=== PATIENT | male | born 1935 | race Native Hawaiian/Other Pacific Islander ===

== ENCOUNTER 2022-03-05 10:12 | Inpatient (IN) | payer MEDICARE, OTHER ==
[~2022-03-05] VITALS: Ht 162.6 cm; Wt 64.3 kg
[~2022-03-05 10:12] MED LIST: MONT4CHW9 PO
[2022-03-05] MEDS ORDERED: PANTOPRAZOLE 40mg/50ML NS AE 50 ML IV ONE ×2 (10:30→16:30)
[2022-03-05] MEDS ORDERED: PANTOPRAZOLE 40 MG/10 ML VIAL INJ IV ONE (10:30)
[2022-03-05 10:51] LABS: Basophils # (auto) 0 10 ^3/uL (0-0.2); Basophils % (auto) 0.6 % (0.0-2.0); Eosinophils # (auto) 0.1 10 ^3/uL (0-0.8); Eosinophils % (auto) 1.4 % (0.0-7.0); Hematocrit 39.3 % (41.0-53.0); Hemoglobin 13.1 g/dL (13.5-17.5); Lymphocytes # (auto) 1.9 10 ^3/uL (0.4-5.4); Lymphocytes % (auto) 24.9 % (10.0-50.0); Mean Corpuscular Hgb Conc. 33.3 g/dL (32.0-36.0); Mean Corpuscular Volume 96.1 fL (80.0-100.0); Monocytes # (auto) 0.5 10 ^3/uL (0-1.3); Monocytes % (auto) 6.6 % (0.0-12.0); Neutrophils # (auto) 5.1 10 ^3/uL (1.6-8.6); Neutrophils % (auto) 66.5 % (37.0-80.0); Red Blood Cells 4.09 10^6/uL (4.5-5.90); Red Cell Distribution Width 13.8 % (11.8-14.3); White Blood Cell 7.6 10^3/uL (4.4-10.8)
[2022-03-05 11:12] LABS: Albumin 3.6 g/dL (3.4-5.0); BUN/Creatinine Ratio 22.4; Calcium 8.4 mg/dL (8.5-10.1); Potassium 3.8 mmol/L (3.5-5.1)
[2022-03-05 11:15] LABS: Bilirubin, Total 0.6 mg/dL (0.2-1.0); Total Protein 6.7 g/dL (6.4-8.2)
[2022-03-05 12:06] LABS: INR 1.03 (0.9-1.15); Partial Thromboplastin Time 31.5 sec (24.6-33.4)
[2022-03-05] MEDS ORDERED: IOHEXOL 300 MG/ML 100ML BOTTLE IJ ONE (12:25)
[2022-03-05] MEDS ORDERED: OCTREOTIDE ACETATE 100 MCG in SODIUM CHL 0.9% 50 ML IV ONE (16:30)
[2022-03-05] MEDS ORDERED: ONDANSETRON HCL 4 MG/2 ML VIAL IV PRN (16:30)
[2022-03-05] MEDS ORDERED: MORPHINE SULFATE INJ 2 MG/ml SYRG IV PRN (16:30)
[2022-03-05] MEDS: SODIUM CHLORIDE 0.9% 1,000 ML IV SCH (17:18)
[2022-03-05] MEDS: OCTREOTIDE ACETATE 500 MCG in SODIUM CHL 0.9% 99 ML IV SCH (17:32)
[2022-03-05 18:50] LABS: Hematocrit 36.5 % (41.0-53.0); Hemoglobin 12.3 g/dL (13.5-17.5)
[2022-03-06] VITALS (8 sets, daily range): BP systolic 121–145; BP diastolic 36–71
[2022-03-06] MEDS: OCTREOTIDE ACETATE 500 MCG in SODIUM CHL 0.9% 99 ML IV SCH ×2 (03:00→11:03)
[2022-03-06] MEDS: SODIUM CHLORIDE 0.9% 1,000 ML IV SCH ×2 (06:48→22:47)
[2022-03-06 08:39] LABS: Potassium 3.9 mmol/L (3.5-5.1)
[2022-03-06 08:47] LABS: Albumin 2.9 g/dL (3.4-5.0); BUN/Creatinine Ratio 25.4; Bilirubin, Total 1.2 mg/dL (0.2-1.0); Calcium 8.2 mg/dL (8.5-10.1); Total Protein 6.5 g/dL (6.4-8.2)
[2022-03-06 09:51] LABS: Basophils # (auto) 0 10 ^3/uL (0-0.2); Basophils % (auto) 0.5 % (0.0-2.0); Eosinophils # (auto) 0.2 10 ^3/uL (0-0.8); Eosinophils % (auto) 2.2 % (0.0-7.0); Hematocrit 36.4 % (41.0-53.0); Hemoglobin 12.4 g/dL (13.5-17.5); Lymphocytes # (auto) 1.9 10 ^3/uL (0.4-5.4); Lymphocytes % (auto) 22.7 % (10.0-50.0); Mean Corpuscular Hemoglobin 32.5 pg (28.0-32.0); Mean Corpuscular Volume 95.6 fL (80.0-100.0); Monocytes # (auto) 0.6 10 ^3/uL (0-1.3); Neutrophils # (auto) 5.6 10 ^3/uL (1.6-8.6); Neutrophils % (auto) 67.6 % (37.0-80.0); Red Blood Cells 3.81 10^6/uL (4.5-5.90); Red Cell Distribution Width 13.7 % (11.8-14.3); White Blood Cell 8.4 10^3/uL (4.4-10.8)
[2022-03-06] MEDS ORDERED: traMADol HCL 50 MG TAB PO PRN (12:45)
[2022-03-06] MEDS ORDERED: MORPHINE SULFATE INJ 2 MG/ml SYRG IV PRN (12:45)
[2022-03-06 15:55] LABS: Urine Bacteria NONE SEEN /hpf (None Seen); Urine Blood Negative /uL (Negative); Urine Mucus FEW (None Seen); Urine Specific Gravity 1.017 (1.001-1.035); Urine WBC <1 /hpf (0 - 3)
[2022-03-06] MEDS ORDERED: GOLYTELY 4L KIT PO ONE (16:00)
[2022-03-06] MEDS: PANTOPRAZOLE 40 MG/10 ML VIAL INJ IV SCH (22:35)
[2022-03-07] MEDS: SODIUM CHLORIDE 0.9% 1,000 ML IV SCH (01:57)
[2022-03-07] MEDS ORDERED: MELATONIN 5 MG TAB PO PRN (04:45)
[2022-03-07 05:00] VITALS: BP 154/82
[2022-03-07 06:45] LABS: Basophils # (auto) 0 10 ^3/uL (0-0.2); Basophils % (auto) 0.4 % (0.0-2.0); Eosinophils # (auto) 0.1 10 ^3/uL (0-0.8); Eosinophils % (auto) 1.5 % (0.0-7.0); Hematocrit 36.5 % (41.0-53.0); Hemoglobin 12.4 g/dL (13.5-17.5); Lymphocytes # (auto) 1.2 10 ^3/uL (0.4-5.4); Lymphocytes % (auto) 11.8 % (10.0-50.0); Mean Corpuscular Hgb Conc. 33.8 g/dL (32.0-36.0); Mean Corpuscular Volume 97.5 fL (80.0-100.0); Monocytes # (auto) 0.8 10 ^3/uL (0-1.3); Monocytes % (auto) 7.9 % (0.0-12.0); Neutrophils # (auto) 7.8 10 ^3/uL (1.6-8.6); Neutrophils % (auto) 78.4 % (37.0-80.0); Red Blood Cells 3.74 10^6/uL (4.5-5.90); Red Cell Distribution Width 13.6 % (11.8-14.3); White Blood Cell 9.9 10^3/uL (4.4-10.8)
[2022-03-07 06:57] LABS: Potassium 3.4 mmol/L (3.5-5.1)
[2022-03-07 07:06] LABS: Albumin 3.3 g/dL (3.4-5.0); BUN/Creatinine Ratio 23.2; Bilirubin, Total 1.3 mg/dL (0.2-1.0); Total Protein 6.2 g/dL (6.4-8.2)
[2022-03-07 09:00] VITALS: BP 143/73
[2022-03-07] MEDS: PANTOPRAZOLE 40 MG/10 ML VIAL INJ IV SCH (10:37)
[2022-03-07] MEDS ORDERED: amLODIPine BESYLATE 5 MG TAB PO ONE (12:15)
[2022-03-07] MEDS ORDERED: POTASSIUM EFFERVESENT TAB 25 MEQ PO ONE (12:15)
[2022-03-07] MEDS ORDERED: LORazepam 2MG/ML-1ML VIAL IV PRN (12:15)
[2022-03-07] MEDS ORDERED: hydrALAZINE HCL 20 MG/ML VL IV PRN (12:15)
[2022-03-07 13:00] VITALS: BP 131/80
[2022-03-07] MEDS ORDERED: PANT40TA2 PO (13:01)
[2022-03-07] MEDS ORDERED: AML5T PO (13:01)
[2022-03-07 14:30] VITALS: BP 130/80
[2022-03-08] MEDS ORDERED: amLODIPine BESYLATE 5 MG TAB PO SCH (10:00)
== END 2022-03-07 15:00 | disposition home or self-care (01) | DRG 378 ==
LOC: ER 10:12 → OVERFLOW 16:37 → WEST WING 23:06
PROVIDERS: ADMIT Nurse Practitioner Family; ATTEND Internal Medicine
DX: K57.31 Diverticulosis of large intestine without perforation or abscess with bleeding (principal); D62 Acute posthemorrhagic anemia; K56.7 Ileus, unspecified; G93.40 Encephalopathy, unspecified; K80.20 Calculus of gallbladder without cholecystitis without obstruction; J45.909 Unspecified asthma, uncomplicated; N40.0 Benign prostatic hyperplasia without lower urinary tract symptoms; F03.90 Unspecified dementia, unspecified severity, without behavioral disturbance, psychotic disturbance, mood disturbance, and anxiety; I25.10 Atherosclerotic heart disease of native coronary artery without angina pectoris; Z79.899 Other long term (current) drug therapy; I10 Essential (primary) hypertension; Z20.822 Contact with and (suspected) exposure to COVID-19
CPT/HCPCS: 36415; 71045; 74177; 80053; 81001; 82607; 83605; 83690; 83735; 83880; 84443; 84484; 85014; 85018; 85025; 85384; 85610; 85730; 86850; 86900; 86901; 87426; 96365; 96366; 96375; 96376; C9113; G0378

== ENCOUNTER 2022-09-13 11:01 | Inpatient (IN) | payer MEDICARE ==
[~2022-09-13] VITALS: Ht 152.4 cm; Wt 62.1 kg
[~2022-09-13 11:01] MED LIST changes: +AML5T PO; +PANT40TA2 PO
[2022-09-13] MEDS ORDERED: SODIUM CHLORIDE 0.9% 1,000 ML IVB ONE (11:15)
[2022-09-13] MEDS ORDERED: cefTRIAXone 1GM/50ML D5W 50 ML IV ONE (11:15)
[2022-09-13 11:40] LABS: Basophils # (auto) 0 10 ^3/uL (0-0.2); Basophils % (auto) 0.3 % (0.0-2.0); Eosinophils # (auto) 0 10 ^3/uL (0-0.8); Eosinophils % (auto) 0.2 % (0.0-7.0); Hematocrit 37.6 % (41.0-53.0); Hemoglobin 12.8 g/dL (13.5-17.5); Lymphocytes # (auto) 0.4 10 ^3/uL (0.4-5.4); Lymphocytes % (auto) 6.7 % (10.0-50.0); Mean Corpuscular Hemoglobin 31.7 pg (28.0-32.0); Mean Corpuscular Volume 93.3 fL (80.0-100.0); Monocytes # (auto) 0.1 10 ^3/uL (0-1.3); Monocytes % (auto) 1.9 % (0.0-12.0); Neutrophils # (auto) 5.6 10 ^3/uL (1.6-8.6); Neutrophils % (auto) 90.9 % (37.0-80.0); Red Blood Cells 4.03 10^6/uL (4.5-5.90); White Blood Cell 6.1 10^3/uL (4.4-10.8)
[2022-09-13 11:54] LABS: INR 1.06 (0.9-1.15); Partial Thromboplastin Time 27.4 sec (24.6-33.4)
[2022-09-13] MEDS ORDERED: ACETAMINOPHEN IV 1000 MG/100ML (10MG/ML) IV ONE (12:00)
[2022-09-13 12:19] LABS: Lactic Acid w/Reflex 2.5 mmol/L (0.4-2.0)
[2022-09-13] MEDS ORDERED: levoFLOXacin 500MG 100 ML IV ONE (12:45)
[2022-09-13] MEDS ORDERED: SODIUM CHLORIDE 0.9% 500 ML IV ONE (12:45)
[2022-09-13 14:13] LABS: Albumin 3.2 g/dL (3.4-5.0); Anion Gap 5 (5-15); Blood Alcohol < 3.0 mg/dL (0-5); Blood Urea Nitrogen 19 mg/dL (7-18); Calcium 7.9 mg/dL (8.5-10.1); Carbon Dioxide 26 mmol/L (21-32); Chloride 106 mmol/L (98-107); Glucose 143 mg/dL (74-106); Magnesium 2.1 mg/dL (1.6-2.6); Potassium 3.4 mmol/L (3.5-5.1); Sodium 137 mmol/L (136-145)
[2022-09-13 14:16] LABS: Alanine Aminotransferase 124 U/L (16-61); Alkaline Phosphatase 253 U/L (45-117); Aspartate Aminotransferase 241 U/L (15-37); BUN/Creatinine Ratio 23.2 (10.0-20.0); Bilirubin, Total 2.4 mg/dL (0.2-1.0); GFR African American 114 mL/min; GFR Non-African American 94 mL/min; Total Protein 6.7 g/dL (6.4-8.2)
[2022-09-13] MEDS ORDERED: NITROGLYCERIN 0.4 MG SL TAB SL PRN (18:15)
[2022-09-13] MEDS ORDERED: MORPHINE SULFATE INJ 2 MG/ml SYRG IV PRN (18:15)
[2022-09-13] MEDS ORDERED: POTASSIUM EFFERVESENT TAB 25 MEQ PO ONE (18:30)
[2022-09-13] MEDS: SODIUM CHLORIDE 0.9% 1,000 ML IV SCH (22:15)
[2022-09-14] MEDS: SODIUM CHLORIDE 0.9% 1,000 ML IV SCH ×3 (04:15→22:31)
[2022-09-14 06:36] LABS: Basophils # (auto) 0.1 10 ^3/uL (0-0.2); Basophils % (auto) 1.8 % (0.0-2.0); Eosinophils # (auto) 0 10 ^3/uL (0-0.8); Eosinophils % (auto) 0.5 % (0.0-7.0); Hematocrit 36.2 % (41.0-53.0); Hemoglobin 12.5 g/dL (13.5-17.5); Lymphocytes # (auto) 0.3 10 ^3/uL (0.4-5.4); Lymphocytes % (auto) 3.6 % (10.0-50.0); Mean Corpuscular Hemoglobin 32.6 pg (28.0-32.0); Mean Corpuscular Hgb Conc. 34.6 g/dL (32.0-36.0); Mean Corpuscular Volume 94.1 fL (80.0-100.0); Monocytes # (auto) 0.1 10 ^3/uL (0-1.3); Monocytes % (auto) 1.1 % (0.0-12.0); Neutrophils # (auto) 7.4 10 ^3/uL (1.6-8.6); Nucleated Red Blood Cells % 0.5 %; Red Blood Cells 3.84 10^6/uL (4.5-5.90); Red Cell Distribution Width 14.8 % (11.8-14.3)
[2022-09-14 06:55] LABS: Albumin 2.7 g/dL (3.4-5.0); Calcium 7.6 mg/dL (8.5-10.1)
[2022-09-14 07:00] LABS: Total Protein 5.9 g/dL (6.4-8.2)
[2022-09-14] MEDS: cefTRIAXone 1GM/50ML D5W 50 ML IV SCH (09:51)
[2022-09-14] MEDS ORDERED: levoFLOXacin 250MG 50 ML IV SCH (10:00)
[2022-09-14] MEDS: ACETAMINOPHEN 325 MG TAB PO PRN ×2 (10:37→22:09)
[2022-09-14] MEDS: amLODIPine BESYLATE 5 MG TAB PO SCH (10:37)
[2022-09-14] MEDS: PANTOPRAZOLE 40 MG TAB PO SCH (10:38)
[2022-09-14] MEDS: ENOXAPARIN SOD 40 MG/0.4 ML SYRINGE SC SCH (10:38)
[2022-09-14 14:15] LABS: Hepatitis A Ab IgM Negative; Hepatitis B Core IgM Negative
[2022-09-14 14:16] LABS: Hepatitis C Antibody Negative (Negative)
[2022-09-14] MEDS: metroNIDAZOLE 500MG/100ML 100 ML IV SCH ×2 (14:32→22:15)
[2022-09-14 16:32] LABS: Urine Bacteria NONE SEEN /hpf (None Seen); Urine Blood 3+ /uL (Negative); Urine Mucus FEW (None Seen); Urine Specific Gravity 1.025 (1.001-1.035); Urine WBC 8 /hpf (0 - 3)
[2022-09-14 22:08] VITALS: BP 140/71
[2022-09-15 00:27] VITALS: BP 140/71
[2022-09-15 05:00] VITALS: BP 104/53
[2022-09-15] MEDS: metroNIDAZOLE 500MG/100ML 100 ML IV SCH ×3 (05:13→21:37)
[2022-09-15] MEDS: ACETAMINOPHEN 325 MG TAB PO PRN (05:27)
[2022-09-15 07:01] LABS: Basophils # (auto) 0 10 ^3/uL (0-0.2); Eosinophils # (auto) 0 10 ^3/uL (0-0.8); Hemoglobin 11.9 g/dL (13.5-17.5); Lymphocytes # (auto) 0.3 10 ^3/uL (0.4-5.4); Lymphocytes % (auto) 2.8 % (10.0-50.0); Mean Corpuscular Hemoglobin 31.7 pg (28.0-32.0); Mean Corpuscular Hgb Conc. 33.2 g/dL (32.0-36.0); Mean Corpuscular Volume 95.5 fL (80.0-100.0); Monocytes # (auto) 0.6 10 ^3/uL (0-1.3); Monocytes % (auto) 4.6 % (0.0-12.0); Neutrophils # (auto) 11.4 10 ^3/uL (1.6-8.6); Neutrophils % (auto) 92.6 % (37.0-80.0); Red Blood Cells 3.77 10^6/uL (4.5-5.90); Red Cell Distribution Width 15.5 % (11.8-14.3); White Blood Cell 12.3 10^3/uL (4.4-10.8)
[2022-09-15 07:18] LABS: INR 1.08 (0.9-1.15); Partial Thromboplastin Time 37.8 sec (24.6-33.4)
[2022-09-15 08:06] LABS: Albumin 2.3 g/dL (3.4-5.0); Bilirubin, Total 5.8 mg/dL (0.2-1.0); Calcium 7.8 mg/dL (8.5-10.1); Total Protein 5.7 g/dL (6.4-8.2)
[2022-09-15 09:16] VITALS: BP 166/65
[2022-09-15] MEDS: cefTRIAXone 1GM/50ML D5W 50 ML IV SCH (09:25)
[2022-09-15] MEDS: amLODIPine BESYLATE 5 MG TAB PO SCH (09:29)
[2022-09-15] MEDS: PANTOPRAZOLE 40 MG TAB PO SCH (09:29)
[2022-09-15] MEDS: ENOXAPARIN SOD 40 MG/0.4 ML SYRINGE SC SCH (10:00)
[2022-09-15] MEDS ORDERED: FUROSEMIDE 20 MG/2 ML VIAL IV SCH (10:00)
[2022-09-15] MEDS ORDERED: FINA5TAB4 PO (11:34)
[2022-09-15] MEDS ORDERED: OXYB10GE PO (11:38)
[2022-09-15] MEDS ORDERED: NAPR375T27 PO (11:46)
[2022-09-15] MEDS ORDERED: CHOL20007 PO (11:46)
[2022-09-15] MEDS ORDERED: ALBU2TAB4 IN (11:46)
[2022-09-15] MEDS: SODIUM CHLORIDE 0.9% 1,000 ML IV SCH (12:25)
[2022-09-15 13:09] VITALS: BP 139/71
[2022-09-15 16:34] VITALS: BP 128/59
[2022-09-16 04:01] VITALS: BP 129/56
[2022-09-16] MEDS: metroNIDAZOLE 500MG/100ML 100 ML IV SCH ×3 (05:03→23:29)
[2022-09-16 08:30] LABS: Basophils # (auto) 0 10 ^3/uL (0-0.2); Basophils % (auto) 0.2 % (0.0-2.0); Eosinophils # (auto) 0.1 10 ^3/uL (0-0.8); Eosinophils % (auto) 0.7 % (0.0-7.0); Hematocrit 37.8 % (41.0-53.0); Hemoglobin 12.7 g/dL (13.5-17.5); Lymphocytes % (auto) 10.1 % (10.0-50.0); Mean Corpuscular Hemoglobin 31.7 pg (28.0-32.0); Mean Corpuscular Hgb Conc. 33.5 g/dL (32.0-36.0); Mean Corpuscular Volume 94.8 fL (80.0-100.0); Monocytes # (auto) 0.6 10 ^3/uL (0-1.3); Monocytes % (auto) 5.5 % (0.0-12.0); Neutrophils # (auto) 8.4 10 ^3/uL (1.6-8.6); Neutrophils % (auto) 83.5 % (37.0-80.0); Nucleated Red Blood Cells % 0.1 %; Red Blood Cells 3.99 10^6/uL (4.5-5.90); Red Cell Distribution Width 15.6 % (11.8-14.3); White Blood Cell 10.1 10^3/uL (4.4-10.8)
[2022-09-16 08:47] VITALS: BP 129/65
[2022-09-16] MEDS: cefTRIAXone 1GM/50ML D5W 50 ML IV SCH (09:32)
[2022-09-16] MEDS: amLODIPine BESYLATE 5 MG TAB PO SCH (09:33)
[2022-09-16] MEDS: PANTOPRAZOLE 40 MG TAB PO SCH (09:33)
[2022-09-16] MEDS: ENOXAPARIN SOD 40 MG/0.4 ML SYRINGE SC SCH (09:33)
[2022-09-16 12:53] VITALS: BP 149/65
[2022-09-16 17:28] VITALS: BP 142/72
[2022-09-16] MEDS: MELATONIN 5 MG TAB PO SCH ×2 (21:03→23:28)
[2022-09-16 22:00] VITALS: BP 155/86
[2022-09-17 04:31] VITALS: BP 146/78
[2022-09-17] MEDS: metroNIDAZOLE 500MG/100ML 100 ML IV SCH ×3 (05:58→22:01)
[2022-09-17 07:10] LABS: Albumin 2.3 g/dL (3.4-5.0); Calcium 7.3 mg/dL (8.5-10.1)
[2022-09-17 07:13] LABS: BUN/Creatinine Ratio 39.5 (10.0-20.0); Bilirubin, Direct 1.1 mg/dL (0-0.2); Bilirubin, Total 1.6 mg/dL (0.2-1.0); Total Protein 5.2 g/dL (6.4-8.2)
[2022-09-17 07:16] LABS: Potassium 2.9 mmol/L (3.5-5.1)
[2022-09-17] MEDS: cefTRIAXone 1GM/50ML D5W 50 ML IV SCH (08:35)
[2022-09-17] MEDS ORDERED: POTASSIUM CHLORIDE 40 MEQ, LIDOCAINE 1% (LOCAL ANESTH.) 4 ML in SODIUM CHL 0.9% 250 ML IV ONE (08:45)
[2022-09-17 09:00] VITALS: BP 135/78
[2022-09-17] MEDS: PANTOPRAZOLE 40 MG TAB PO SCH (10:41)
[2022-09-17] MEDS: ENOXAPARIN SOD 40 MG/0.4 ML SYRINGE SC SCH (10:41)
[2022-09-17] MEDS: amLODIPine BESYLATE 5 MG TAB PO SCH (10:42)
[2022-09-17 13:00] VITALS: BP 148/75
[2022-09-17 16:48] VITALS: BP 153/79
[2022-09-17] MEDS: MELATONIN 5 MG TAB PO SCH (21:50)
[2022-09-17 22:00] VITALS: BP 171/99
[2022-09-18 05:00] VITALS: BP 170/83
[2022-09-18] MEDS: metroNIDAZOLE 500MG/100ML 100 ML IV SCH ×3 (06:04→22:00)
[2022-09-18 06:31] LABS: Potassium 3.5 mmol/L (3.5-5.1)
[2022-09-18 06:43] LABS: Albumin 2.6 g/dL (3.4-5.0); Bilirubin, Total 1.7 mg/dL (0.2-1.0); Calcium 7.7 mg/dL (8.5-10.1); Magnesium 2.2 mg/dL (1.6-2.6); Total Protein 5.6 g/dL (6.4-8.2)
[2022-09-18 09:10] VITALS: BP 147/72
[2022-09-18] MEDS: ENOXAPARIN SOD 40 MG/0.4 ML SYRINGE SC SCH (09:27)
[2022-09-18] MEDS: PANTOPRAZOLE 40 MG TAB PO SCH (09:27)
[2022-09-18] MEDS: amLODIPine BESYLATE 5 MG TAB PO SCH (09:27)
[2022-09-18] MEDS: cefTRIAXone 1GM/50ML D5W 50 ML IV SCH (09:27)
[2022-09-18 12:30] VITALS: BP 158/76
[2022-09-18 13:10] VITALS: BP 147/72
[2022-09-18] MEDS ORDERED: cloNIDine 0.1 mg/24hr 7 DAY PATCH TD ONE (13:45)
[2022-09-18] MEDS ORDERED: cloNIDine HCL 0.1 MG TAB PO ONE (14:15)
[2022-09-18 16:41] VITALS: BP 128/63
[2022-09-18 22:00] VITALS: BP 160/59
[2022-09-18] MEDS: MELATONIN 5 MG TAB PO SCH (22:00)
[2022-09-19] MEDS ORDERED: hydrALAZINE HCL 20 MG/ML VL IV PRN (05:00)
[2022-09-19] MEDS: metroNIDAZOLE 500MG/100ML 100 ML IV SCH (06:01)
[2022-09-19 06:02] VITALS: BP 175/76
[2022-09-19] MEDS: cefTRIAXone 1GM/50ML D5W 50 ML IV SCH (08:53)
[2022-09-19] MEDS: PANTOPRAZOLE 40 MG TAB PO SCH (08:54)
[2022-09-19] MEDS: ENOXAPARIN SOD 40 MG/0.4 ML SYRINGE SC SCH (08:54)
[2022-09-19] MEDS: amLODIPine BESYLATE 5 MG TAB PO SCH (08:54)
[2022-09-19 09:16] VITALS: BP 134/65
[2022-09-19] MEDS: ACETAMINOPHEN 325 MG TAB PO PRN (10:48)
== END 2022-09-19 11:39 | disposition hospice, home (50) | DRG 871 ==
LOC: ER 11:01 → EDBD 11:01 → TELE 18:16 → TELE-WESTW 09-14 21:13 → TELE-CENTR 09-18 06:40
PROVIDERS: ADMIT Nurse Practitioner Family; ATTEND Internal Medicine
DX: A41.9 Sepsis, unspecified organism (principal); G92.8 Other toxic encephalopathy; K83.1 Obstruction of bile duct; J90 Pleural effusion, not elsewhere classified; K81.0 Acute cholecystitis; E87.6 Hypokalemia; Z66 Do not resuscitate; Z20.822 Contact with and (suspected) exposure to COVID-19; R74.01 Elevation of levels of liver transaminase levels; F03.90 Unspecified dementia, unspecified severity, without behavioral disturbance, psychotic disturbance, mood disturbance, and anxiety; J45.909 Unspecified asthma, uncomplicated; K59.00 Constipation, unspecified
CPT/HCPCS: 36415; 70450; 71045; 74181; 76705; 80053; 80074; 80320; 81001; 82248; 82962; 83605; 83735; 84484; 85025; 85610; 85730; 87040; 87426; 87804; 93005; 96365; 96366; 96368; 97163; 99291; G0378; J0131; J0696; J1956; J2001; J3490